=== PATIENT | female | born 1965 | race Caucasian/White ===

== ENCOUNTER 2019-04-21 20:34 | Emergency (ER) | payer OTHER ==
--- NOTE | 2019-04-21 20:56 | EDM.PDOC ---
ED HPI GENERAL MEDICAL PROBLEM - General Chief Complaint: Skin Complaint Stated Complaint: NOT FEELING WELL Time Seen by Provider: 04/21/19 20:56 Source of Information: Reports: Patient History Limitations: Reports: No Limitations - History of Present Illness INITIAL COMMENTS - FREE TEXT/NARRATIVE: HISTORY AND PHYSICAL: History of present illness: Patient is a 53-year-old female who presents to the emergency room with concerns of some soft tissue swelling to the left neck. She states over the past one week she has had intermittent episodes of diarrhea, fatigue and generally feeling unwell. For the past 2 days she noticed some soft tissue swelling to the left neck right above the clavicle. The area is not localized as far as being able to palpate it like a lymph node. But when you push up on the skin she says she can feel pressure into her neck. Neck is symmetrical. Patient denies any fever, chills, headache, change in vision, syncope or near syncope. Denies any chest pain, back pain, shortness of breath or cough. Denies any abdominal pain, nausea, vomiting, constipation or dysuria. Has not noted any blood in urine or stool. Patient has been eating and drinking appropriately. Review of systems: As per history of present illness and below otherwise all systems reviewed and negative. Past medical history: As per history of present illness and as reviewed below otherwise noncontributory. Surgical history: As per history of present illness and as reviewed below otherwise noncontributory. Social history: See social history for further information Family history: As per history of present illness and as reviewed below otherwise noncontributory. Physical exam: General: Well-developed and well-nourished 53-year-old female. Alert and oriented. Nontoxic appearing and in no acute distress. HEENT: Atraumatic, normocephalic, pupils equal and reactive bilaterally, negative for conjunctival pallor or scleral icterus, mucous membranes moist, TMs normal bilaterally, throat clear, neck supple, nontender, trachea midline. Diffuse area of soft tissue swelling noted to the left distal neck above the clavicle. No drooling or trismus noted. No meningeal signs. No hot potato voice noted. Lungs: Clear to auscultation, breath sounds equal bilaterally, chest nontender. Heart: S1S2, regular rate and rhythm without overt murmur Abdomen: Soft, nondistended, nontender. Negative for masses or hepatosplenomegaly. Negative for costovertebral tenderness. Skin: Intact, warm, dry. No lesions or rashes noted. Extremities: Atraumatic, moves all extremities per self without difficulty or deficits. Neurovascular unremarkable. Neuro: Awake, alert, oriented. Cranial nerves II through XII unremarkable. Cerebellum unremarkable. Motor and sensory unremarkable throughout. Exam nonfocal. Notes: Lab work is unremarkable.CT shows no adenopathy within the supraclavicular regions. No abnormal soft tissue swelling, inflammation or mass within the supraclavicular regions pedicular on the left. Normal articulation at the bilateral sternoclavicular joints. No osseous abnormality of the clavicles. No fractures. No adenopathy elsewhere. No prevertebral soft tissue swelling. Normal deep soft tissues of the neck. Mild cervical spondylosis Findings were shared with the patient. Encouraged her to follow up with her primary care provider for further evaluation and management. Supportive care measures were reviewed and discussed. Voices understanding and is agreeable to plan of care. Denies any further questions or concerns at this time. Diagnostics: CBC, CMP, Soft Tissue Neck CT Therapeutics: NS Prescription: None Impression: Worried well Plan: 1. Lab work is normal. CT is normal. 2. Follow up with your primary care provider for re-evaluation and further management. 3. Return to the ED as needed and as discussed. Definitive disposition and diagnosis as appropriate pending reevaluation and review of above. denies pain Pain Score (Numeric/FACES): 0 - Related Data Allergies Allergy/AdvReac Type Severity Reaction Status Date / Time acetaminophen [From Vicodin] Allergy Hallucinati Verified 04/21/19 20:51 ons hydrocodone [From Vicodin] Allergy Hallucinati Verified 04/21/19 20:51 ons Home Meds: Home Meds Estradiol [Estrace] 1 mg PO DAILY 04/21/19 [History] Insulin Glargine,Hum.Rec.Anlog [Xiang [place] U-100] 26 unit SQ ASDIRECTED [History] Insulin Lispro [HumaLOG] 1 injection SQ ACBED PRN 04/21/19 [History] Levothyroxine Sodium [Synthroid] 112 mcg PO ACBREAKFAST 04/21/19 [History] atorvaSTATin [Lipitor] 20 mg PO BEDTIME 04/21/19 [History] metFORMIN [Glucophage] 500 mg PO BIDMEALS 04/21/19 [History] ED ROS GENERAL - Review of Systems Review Of Systems: ROS reveals no pertinent complaints other than HPI. ED EXAM, SKIN/RASH Exam: See Below (See dictation) Course - Vital Signs Last Recorded V/S: Last Vital Signs Temp 97.5 F 04/21/19 20:53 Pulse 69 04/21/19 20:53 Resp 18 04/21/19 20:53 BP 150/83 H 04/21/19 20:53 Pulse Ox 97 04/21/19 20:53 - Orders/Labs/Meds Orders: Active Orders 24 hr Category Date Time Status Sodium Chloride 0.9% [Normal Saline] 1,000 ml Med 04/21/19 22:05 Ordered IV STAT Medication Orders Sodium Chloride (Normal Saline) 1,000 mls @ 999 mls/hr IV STAT ONE Stop: 04/21/19 23:05 Labs: Laboratory Tests 04/21/19 04/21/19 04/21/19 Range/Units 21:14 21:14 21:14 WBC 8.80 (4.0-11.0) K/uL RBC 4.80 (4.30-5.90) M/uL Hgb 14.4 (12.0-16.0) g/dL Hct 42.8 (36.0-46.0) % MCV 89.2 (80.0-98.0) fL MCH 30.0 (27.0-32.0) pg MCHC 33.6 (31.0-37.0) g/dL RDW Std Deviation 42.4 (28.0-62.0) fl RDW Coeff of Deedee 13 (11.0-15.0) % Plt Count 247 (150-400) K/uL MPV 9.50 (7.40-12.00) fL Neut % (Auto) 60.3 (48.0-80.0) % Lymph % (Auto) 31.9 (16.0-40.0) % [place] % (Auto) 4.8 (0.0-15.0) % Eos % (Auto) 2.8 (0.0-7.0) % Baso % (Auto) 0.2 (0.0-1.5) % Neut # (Auto) 5.3 (1.4-5.7) K/uL Lymph # (Auto) 2.8 H (0.6-2.4) K/uL [place] # (Auto) 0.4 (0.0-0.8) K/uL Eos # (Auto) 0.3 (0.0-0.7) K/uL Baso # (Auto) 0.0 (0.0-0.1) K/uL Nucleated RBC % 0.0 /100WBC Nucleated RBCs # 0 K/uL ESR 4 (0-29) mm/hr Sodium 137 (136-145) mmol/L Potassium 4.0 (3.5-5.1) mmol/L Chloride 103 (98-107) mmol/L Carbon Dioxide 26.3 (21.0-32.0) mmol/L BUN 12 (7.0-18.0) mg/dL Creatinine 0.9 (0.6-1.0) mg/dL Est Cr Clr Drug Dosing 55.86 mL/min Estimated GFR (MDRD) > 60.0 ml/min Glucose 309 H (74-106) mg/dL Calcium 8.5 (8.5-10.1) mg/dL Total Bilirubin 0.3 (0.2-1.0) mg/dL AST 12 L (15-37) IU/L ALT 22 (14-63) IU/L Alkaline Phosphatase 88 (46-116) U/L C-Reactive Protein (0.00-0.90) mg/dL Total Protein 6.7 (6.4-8.2) g/dL Albumin 3.6 (3.4-5.0) g/dL Globulin 3.1 (2.6-4.0) g/dL Albumin/Globulin Ratio 1.2 (0.9-1.6) 04/21/19 Range/Units 21:14 WBC (4.0-11.0) K/uL RBC (4.30-5.90) M/uL Hgb (12.0-16.0) g/dL Hct (36.0-46.0) % MCV (80.0-98.0) fL MCH (27.0-32.0) pg MCHC (31.0-37.0) g/dL RDW Std Deviation (28.0-62.0) fl RDW Coeff of Deedee (11.0-15.0) % Plt Count (150-400) K/uL MPV (7.40-12.00) fL Neut % (Auto) (48.0-80.0) % Lymph % (Auto) (16.0-40.0) % [place] % (Auto) (0.0-15.0) % Eos % (Auto) (0.0-7.0) % Baso % (Auto) (0.0-1.5) % Neut # (Auto) (1.4-5.7) K/uL Lymph # (Auto) (0.6-2.4) K/uL [place] # (Auto) (0.0-0.8) K/uL Eos # (Auto) (0.0-0.7) K/uL Baso # (Auto) (0.0-0.1) K/uL Nucleated RBC % /100WBC Nucleated RBCs # K/uL ESR (0-29) mm/hr Sodium (136-145) mmol/L Potassium (3.5-5.1) mmol/L Chloride (98-107) mmol/L Carbon Dioxide (21.0-32.0) mmol/L BUN (7.0-18.0) mg/dL Creatinine (0.6-1.0) mg/dL Est Cr Clr Drug Dosing mL/min Estimated GFR (MDRD) ml/min Glucose (74-106) mg/dL Calcium (8.5-10.1) mg/dL Total Bilirubin (0.2-1.0) mg/dL AST (15-37) IU/L ALT (14-63) IU/L Alkaline Phosphatase (46-116) U/L C-Reactive Protein <0.20 (0.00-0.90) mg/dL Total Protein (6.4-8.2) g/dL Albumin (3.4-5.0) g/dL Globulin (2.6-4.0) g/dL Albumin/Globulin Ratio (0.9-1.6) Meds: Medications Generic Name Dose Route Start Last Admin Trade Name Freq PRN Reason Stop Dose Admin Sodium Chloride 1,000 mls @ 999 mls/hr 04/21/19 22:05 Normal Saline IV 04/21/19 23:05 STAT ONE Discontinued Medications Generic Name Dose Route Start Last Admin Trade Name Astrid PRN Reason Stop Dose Admin Iopamidol 100 ml 04/21/19 21:51 04/21/19 22:15 Isovue-370 (76%) IVPUSH 04/21/19 21:52 100 ml ONETIME ONE Administration Departure - Departure Time of Disposition: 22:32 Disposition: Home, Self-Care 01 Clinical Impression: Worried well - Discharge Information Instructions: Medical Screening Exam Referrals: PCP,Not In Area [Primary Care Provider] - Forms: ED Department Discharge Additional Instructions: The following information is given to patients seen in the emergency department who are being discharged to home. This information is to outline your options for follow-up care. We provide all patients seen in our emergency department with a follow-up referral. The need for follow-up, as well as the timing and circumstances, are variable depending upon the specifics of your emergency department visit. If you don't have a primary care physician on staff, we will provide you with a referral. We always advise you to contact your personal physician following an emergency department visit to inform them of the circumstance of the visit and for follow-up with them and/or the need for any referrals to a consulting specialist. The emergency department will also refer you to a specialist when appropriate. This referral assures that you have the opportunity for follow-up care with a specialist. All of these measure are taken in an effort to provide you with optimal care, which includes your follow-up. Under all circumstances we always encourage you to contact your private physician who remains a resource for coordinating your care. When calling for follow-up care, please make the office aware that this follow-up is from your recent emergency room visit. If for any reason you are refused follow-up, please contact the [facility] Emergency Department at and asked to speak to the emergency department charge nurse. [facility] [address] [place] [id number] [facility] [address] [place] [id number] 1. Lab work is normal. CT is normal. 2. Follow up with your primary care provider for re-evaluation and further management. 3. Return to the ED as needed and as discussed. - My Orders Last 24 Hours: My Active Orders 04/21/19 22:05 Sodium Chloride 0.9% [Normal Saline] 1,000 ml IV STAT - Assessment/Plan Last 24 Hours: My Active Orders 04/21/19 22:05 Sodium Chloride 0.9% [Normal Saline] 1,000 ml IV STAT
[2019-04-21 21:46] LABS: CHLORIDE,CL 103 mmol/L (98-107); SODIUM,NA 137 mmol/L (136-145)
[2019-04-21] MEDS ORDERED: Iopamidol 755 Mg/ML 100 ML Bottle IVPUSH ONE (21:51)
[2019-04-21] MEDS ORDERED: Sodium Chloride 0.9% 1,000 ML IV ONE (22:05)
--- NOTE | 2019-04-21 22:31 | CT ---
INDICATION: Swelling in the supraclavicular regions COMPARISON: None. TECHNIQUE: [place] CT of the soft tissues in neck with IV contrast. Coronal and sagittal reformat images. FINDINGS: Normal bilateral parotid and submandibular glands. Normal thyroid gland. No cervical adenopathy. No supraclavicular or superior mediastinal adenopathy. No inflammation or soft tissue prominence within the supraclavicular regions bilaterally, particularly on the left. Normal articulation of the bilateral sternoclavicular joints. No osseous abnormality of the clavicles. Lung apices are clear. Nasopharynx and oropharynx are clear. No inflammation within the parapharyngeal fat pads are retropharyngeal space. Normal thickness of the epiglottis. Normal glottis with symmetric vocal cords. Mild cervical spondylosis. No prevertebral soft tissue swelling. Visualized paranasal sinuses and mastoid air cells are clear. IMPRESSION: 1. No adenopathy within the supraclavicular regions. No abnormal soft tissue swelling, inflammation or mass within the supraclavicular regions pedicular on the left. Normal articulation at the bilateral sternoclavicular joints. No osseous abnormality of the clavicles. No fractures. 2. No adenopathy elsewhere 3. No prevertebral soft tissue swelling. 4. Normal deep soft tissues of the neck 5. Mild cervical spondylosis Please note that all CT scans at this facility use dose modulation, iterative reconstruction, and/or weight-based dosing when appropriate to reduce radiation dose to as low as reasonably achievable. Dictated by Andrew Posey MD @ Apr 21 2019 10:26PM Signed by Dr. Andrew Posey @ Apr 21 2019 10:30PM
== END 2019-04-21 23:00 | disposition home or self-care (01) ==
LOC: MW.ED 20:34
DX: M47.812 Spondylosis without myelopathy or radiculopathy, cervical region (principal); Z79.4 Long term (current) use of insulin; Z79.899 Other long term (current) drug therapy; Z88.8 Allergy status to other drugs, medicaments and biological substances
CPT/HCPCS: 36415; 70491; 80053; 85025; 85652; 86140; 96360; 99283; J7040; Q9967